=== PATIENT | female | born 1945 | race Caucasian/White ===

== ENCOUNTER 2017-01-30 17:33 | Emergency (ER) | payer MEDICARE | END 2017-01-30 19:32 | disposition home or self-care (01) | LOC: ER 17:33 | DX: R51 Headache (principal); G31.9 Degenerative disease of nervous system, unspecified; I10 Essential (primary) hypertension; Z79.01 Long term (current) use of anticoagulants | CPT/HCPCS: 70450; 99283; 99284-25 ==

== ENCOUNTER 2017-05-12 15:59 | Emergency (ER) | payer MEDICARE ==
[2017-05-12 17:07] LABS: BASO % 0.6 % (0.1-1.2); EOS # 0.1 10_X3_uL (0.0-0.4); EOS % 1.9 % (0.7-5.8); GRAN # 3.6 10_X3_uL (1.6-6.1); GRAN % 57.3 % (34.0-71.1); HEMOGLOBIN 14.5 g/dL (11.2-15.7); LYMPH # 1.8 10_X3_uL (1.2-3.7); LYMPH % 28.7 % (19.3-51.7); MEAN CORPUSCULAR HEMOGLOBIN 32.4 pg (27.0-33.0); MEAN CORPUSCULAR HGB CONC 33.7 g/dL (32.0-36.0); MEAN CORPUSCULAR VOLUME 96.2 fL (79-95); MEAN PLATELET VOLUME 11.7 fl (7.5-11.5); MONO # 0.7 10_X3_uL (0.2-0.9); MONO % 11.5 % (4.7-12.5); PLATELET COUNT 208 x10_3/uL (182-369); RED BLOOD COUNT 4.47 x10_6/uL (3.9-5.2); RED CELL DISTRIBUTION WIDTH 13.7 % (11.7-14.4); WHITE BLOOD COUNT 6.2 x10_3/uL (4.0-10.0)
[2017-05-12 17:21] LABS: CKMB 1.5 ng/ml (0.0-5.0)
[2017-05-12 17:24] LABS: CALCIUM 9.9 mg/dL (8.7-10.7); MAGNESIUM 2.2 mg/dL (1.8-2.4); POTASSIUM 4.1 mmol/L (3.5-5.1)
[2017-05-12 17:28] LABS: THYROID STIMULATING HORMONE 2.22 uIU/mL (0.34-4.82)
== END 2017-05-12 17:56 | disposition home or self-care (01) ==
LOC: ER 15:59
PROVIDERS: Emergency Medicine
DX: R00.1 Bradycardia, unspecified (principal); Z86.73 Personal history of transient ischemic attack (TIA), and cerebral infarction without residual deficits; Z90.710 Acquired absence of both cervix and uterus; Z79.899 Other long term (current) drug therapy; Z79.01 Long term (current) use of anticoagulants
CPT/HCPCS: 36415; 80048; 82550; 82553; 83735; 84443; 85025; 93005; 99284; 99284-25